=== PATIENT | male | born 1955 | race Caucasian/White ===

== ENCOUNTER 2019-04-30 10:21 | Emergency (ER) | payer SELFPAY ==
[2019-04-30] MEDS ORDERED: Diphtheria,Pertussis(Acell),Tetanus Vaccine 0.5 ML SDV inactive IM ONE (17:21)
--- NOTE | 2019-04-30 17:49 | EDM.PDOC ---
ED HPI GENERAL MEDICAL PROBLEM - General Stated Complaint: CUT FINGER Time Seen by Provider: 04/30/19 10:30 Source of Information: Reports: Patient History Limitations: Reports: No Limitations - History of Present Illness INITIAL COMMENTS - FREE TEXT/NARRATIVE: According to patient he was slicing potatoes with a large slicer, and accidentally slice the tip of his left middle finger last evening. He had lot of bleeding, He applied some medicinal glue to the wound and placed a dressing, the bleeding slowed. today morning he noticed that the wound started to bleed and he could not stop the bleeding. Hence he is here. No pain in the finger, no tingling or numbness. Also patient is not sure of his last tetanus shot. No fever or chills. No hand pain or redness. Onset Date: 04/29/19 Location: Reports: Upper Extremity, Left Severity: Mild Improves with: Reports: None Worsens with: Reports: None Associated Symptoms: Denies: Confusion, Chest Pain, Cough, Diaphoresis, Fever/ Chills, Nausea/Vomiting, Rash Left Finger-Middle Pain Score (Numeric/FACES): 0 - Related Data Allergies Allergy/AdvReac Type Severity Reaction Status Date / Time No Known Allergies Allergy Verified 04/30/19 10:50 ED ROS GENERAL - Review of Systems Review Of Systems: See Below Constitutional: Denies: Fever, Chills HEENT: Denies: Rhinitis, Throat Pain Respiratory: Denies: Cough, Sputum Cardiovascular: Denies: Chest Pain, Lightheadedness GI/Abdominal: Denies: Abdominal Pain, Nausea, Vomiting Musculoskeletal: Denies: Joint Pain, Joint Swelling Skin: Reports: Wound. Denies: Bruising, Pruritis, Rash ED EXAM, GENERAL - Physical Exam Exam: See Below Exam Limited By: No Limitations General Appearance: Alert, WD/WN, No Apparent Distress Eye Exam: Bilateral Eye: EOMI, PERRL Ears: Normal External Exam, Normal Canal, Hearing Grossly Normal, Normal TMs Ear Exam: Bilateral Ear: Auricle Normal, Canal Normal, TM normal Nose: Normal Inspection, Normal Mucosa, No Blood Throat/Mouth: Normal Inspection, Normal Lips, Normal Teeth, Normal Gums, Normal Oropharynx, Normal Voice, No Airway Compromise Head: Atraumatic, Normocephalic Neck: Normal Inspection, Supple, Non-Tender, Full Range of Motion Respiratory/Chest: No Respiratory Distress, Lungs Clear, Normal Breath Sounds, No Accessory Muscle Use, Chest Non-Tender Cardiovascular: Normal Peripheral Pulses Extremities: Normal Inspection, Normal Range of Motion, Non-Tender, Normal Capillary Refill, No Pedal Edema Skin Exam: Warm, Other (Left Middle finger: there is a circumferential cut over the stip of the finger invo lving the distal nail margin. the flap is held by a small connection to the rest of the skin of the finger. It does approximate well to the tip of the finger. There is active bleeding. Nontender to touch.) ED GENERAL MEDICAL PROCEDURES - Laceration/Wound Repair Left Digit - 3rd (Middle) Lac/wound length in cm: 2 Appearance: Other (circumfernetial) Distal NVT: Neuro & Vascular Intact Anesthetic Type: Local Local Anesthesia - Lidocaine (Xylocaine): 1% Plain Local Anesthetic Volume: 1cc Skin Prep: Providone-Iodine (Betadine) Closed with: Sutures Suture Size: 5-0 # of Sutures: 3 Suture Type: Other (ethilon) Sterile Dressing Applied: Provider Tetanus Status Addressed: Yes Complications: No Course - Vital Signs Text/Narrative:: Pt has a circumferential laceration of the left middle finger. The wound was closed under aseptic precautions with 5-O ethilon. Flap did approximate well.Pressure dressing done.Advised elevation of the finger.Pt did receive tetanus today. Wound care discussed with patient in detail. Infection precautions advised. Suture removal in 1 wk. Followup in clinic for suture removal. Last Recorded V/S: Last Vital Signs Temp 98 F 04/30/19 11:44 Pulse 88 04/30/19 11:44 Resp 16 04/30/19 11:44 BP 159/100 H 04/30/19 11:00 Pulse Ox 99 04/30/19 11:44 - Orders/Labs/Meds Orders: Active Orders 24 hr Category Date Time Status Vaccines to be Administered [RC] PER UNIT ROUTINE Care 04/30/19 17:21 Active Meds: Medications Discontinued Medications Generic Name Dose Route Start Last Admin Trade Name Freq PRN Reason Stop Dose Admin Diphtheria/Tetanus/Acell Pertussis 0.5 ml 04/30/19 17:21 04/30/19 11:00 Boostrix IM 04/30/19 17:22 0.5 ml .ONCE ONE Administration Departure - Departure Time of Disposition: 15:00 Disposition: Home, Self-Care 01 Condition: Fair Clinical Impression: Finger laceration - Discharge Information *PRESCRIPTION DRUG MONITORING PROGRAM REVIEWED*: Not Applicable *COPY OF PRESCRIPTION DRUG MONITORING REPORT IN PATIENT ALFREDA: Not Applicable Instructions: Laceration Care, Adult Referrals: PCP,None [Primary Care Provider] - Care Plan Goals: Keep dressing on for two days. Keep dry for 3 days. No dishwashing or soaking of hand. May shower in 3 days. Redress. Continue to use antibiotic ointment and dress with bandage. Have sutures removed in 7 days by primary care provider. Return sooner to physician if signs of infection develop. Keep hand elevated 2 to 3 hours. Try not to bend finger as this could tear sutures. Tylenol 650 mg or motrin 600 mg every 6 hrs for pain. - Problem List & Annotations (1) Finger laceration SNOMED Code(s): 100764782 Code(s): S61.219A - LACERATION W/O FB OF UNSP FINGER W/O DAMAGE TO NAIL, INIT Status: Acute - Problem List Review Problem List Initiated/Reviewed/Updated: Yes - My Orders Last 24 Hours: My Active Orders 04/30/19 17:21 Vaccines to be Administered [RC] PER UNIT ROUTINE - Assessment/Plan Last 24 Hours: My Active Orders 04/30/19 17:21 Vaccines to be Administered [RC] PER UNIT ROUTINE Assessment:: Left middle finger laceration Plan: Pt has a circumferential laceration of the left middle finger. The wound was closed under aseptic precautions with 5-O ethilon. Pressure dressing done.Advised elevation of the finger.Pt did receive tetanus today. Wound care discussed with patient in detail. Infection precautions advised. Suture removal in 1 wk. Followup in clinic for suture removal.
[2019-05-02] MEDS ORDERED: Lidocaine 1% PF 2 ML SDV INJECT ONE (05:22)
[2019-05-02] MEDS ORDERED: Mupirocin Oint 22 GM Tube TOP ONE (05:28)
[2019-05-02] MEDS ORDERED: Mupirocin Oint 22 GM Tube TOP SCH (08:00)
[2019-05-03] MEDS ORDERED: Bacitracin Oint 1 GM U/D Packet TOP ONE (23:13)
== END 2019-04-30 11:10 | disposition home or self-care (01) ==
LOC: LB.ED 10:21
DX: S61.213A Laceration without foreign body of left middle finger without damage to nail, initial encounter (principal); Z23 Encounter for immunization; W26.0XXA Contact with knife, initial encounter
CPT/HCPCS: 12001; 90471; 90715; 99282; J2001